=== PATIENT | male | born 1970 | race Caucasian/White ===

== ENCOUNTER 2016-08-27 22:53 | Emergency (ER) | payer SELFPAY ==
[~2016-08-27] VITALS: Ht 162.6 cm; Wt 80.5 kg
[2016-08-27 23:01] VITALS: Ht 162.6 cm; Wt 80.5 kg
[2016-08-28] MEDS ORDERED: KETOROLAC 30 MG INJ IV STA (00:32)
[2016-08-28 01:15] LABS: ADD SCAN DIFF NO
[2016-08-28 01:33] LABS: HEMOGLOBIN 14.6 g/dl (14.0-18.0); LYMPHOCYTES # 3.2 10^3/ul (0.8-2.9); RED CELL DISTRIBUTION WIDTH 12.5 % (11.5-14.5)
[2016-08-28 01:34] LABS: BASOPHILS % 0.5 % (0.0-2.0); EOSINOPHILS # 0.2 10^3/ul (0.0-0.5); EOSINOPHILS % 2.5 % (0.0-7.0); HEMATOCRIT 41.9 % (42.0-52.0); LYMPHOCYTES % 39.6 % (15.0-51.0); MEAN CORPUSCULAR HEMOGLOBIN 32.4 pg (29.0-33.0); MEAN CORPUSCULAR HGB CONC 34.8 g/dl (32.0-37.0); MEAN CORPUSCULAR VOLUME 93.1 fl (82.0-101.0); MEAN PLATELET VOLUME 11.2 fl (7.4-10.4); MONOCYTES % 12.2 % (0.0-11.0); NEUTROPHIL # 3.6 10^3/ul (1.6-7.5); NEUTROPHILS % 44.8 % (39.0-77.0); PLATELET COUNT 196 10^3/UL (140-415)
[2016-08-28 01:45] LABS: ALBUMIN 4.5 g/dl (3.3-4.9); ALBUMIN/GLOBULIN RATIO 1.73; BILIRUBIN,INDIRECT 0.1 mg/dl (0-1.1); BILIRUBIN,TOTAL 0.1 mg/dl (0.2-1.3); CALCIUM 9.5 mg/dl (8.4-10.2); CREATININE 0.96 mg/dl (0.61-1.24); POTASSIUM 3.7 mmol/L (3.5-5.1); TOTAL PROTEIN 7.1 g/dl (6.1-8.1)
--- NOTE | 2016-08-28 02:21 | RADRPT ---
PROCEDURE: CT of the abdomen and pelvis without contrast CLINICAL INDICATION: Abdominal Pain. TECHNIQUE: Spiral CT images through the abdomen and pelvis without the use of contrast. The admin istered radiation dose is CTDI 12.5 save and DLP 807.73. One or more of the following dose reductio n techniques were used: automated exposure control, adjustment of the mA and/or kV according to hunter ent size, or use of iterative reconstruction technique. COMPARISON: None FINDINGS: Lack of oral and intravenous contrast somewhat limits evaluation. Slight dependent atelectasis of the lung bases is seen. No pleural effusion is seen. 2 mm right middle lobe lung nodule is seen. The liver, spleen, adrenals, and pancreas are unremarkable in appearance. There are multiple tiny n onobstructing bilateral renal calyceal stones. No stones are seen in the ureters or bladder. Minimal aortic calcification is seen. The prostate is minimally increased in size. The bladder is unremar kable in appearance.. There is no evidence for bowel obstruction, free air, or abscess. The append ix is normal in appearance. . There is no evidence for diverticulitis. No adenopathy or ascites is seen. There is mild degenerative change of the spine. IMPRESSION: Tiny nonobstructing bilateral renal stones. Otherwise unremarkable study.. RPTAT: [facility] Physician Edilberto Date Time Electronically viewed and signed by Physician Edilberto on 08/28/2016 02:21 LE/
[2016-08-28 02:43] LABS: ADD UMIC NO; UR BILIRUBIN (Dip) NEGATIVE (NEGATIVE); UR BLOOD (Dip) NEGATIVE (NEGATIVE); UR CLARITY CLEAR (CLEAR); UR COLOR LT. YELLOW (YELLOW); UR GLUCOSE (Dip) NEGATIVE (NEGATIVE); UR KETONES (Dip) NEGATIVE (NEGATIVE); UR LEUKOCYTE ESTERASE (Dip) NEGATIVE (NEGATIVE); UR NITRITE (Dip) NEGATIVE (NEGATIVE); UR TOTAL PROTEIN (Dip) NEGATIVE (NEGATIVE); UR UROBILINOGEN (Dip) 0.2 E.U./dL (0.1-1.0)
[2016-08-28] MEDS ORDERED: IBUP-1542 PO (02:47)
[2016-08-28] MEDS ORDERED: TAMS-14 PO (02:48)
[2016-08-28] MEDS ORDERED: HYDR-906 PO (02:48)
[2016-08-28 03:18] VITALS: BP 120/73; PULSE 73; RESP 20; TEMP 97.9
--- NOTE | 2016-08-28 03:18 | ERD ---
ER Documentation Chief Complaint Date/Time DATE: 08/28/16 TIME: 03:11 Chief Complaint RT FLANK PAIN X 2 DAYS. HX KIDNEY STONES, STATES IT FEELS THE SAME HPI This is a 45-year-old male with past medical history of nephrolithiasis who presents to the emergency department with right-sided flank pain 2 days. Patient states that his pain is episodic in nature. Patient describes the pain to be sharp and stabbing. Patient denies any fevers, chills, nausea, vomiting, chest pain, shortness of breath abdominal pain or loss of consciousness. Patient denies any dysuria, frequency, urgency or hematuria. Patient states that in the past he has had to have surgical procedures done to remove his stones. ROS All systems reviewed and are negative except as per history of present illness. Medications Home Meds Active Scripts Tamsulosin Hcl* (Flomax*) 0.4 Mg Cap.er.24h, 0.4 MG PO BID, #30 CAP Prov:ARIANE JENNINGS PA-C 08/28/16 Hydrocodone/Acetaminophen (Sidney 5-325 Tablet) 1 Each Tablet, 1 TAB PO Q6H Y for PAIN, #7 TAB Prov:ARIANE JENNINGS PA-C 08/28/16 Ibuprofen* (Motrin*) 600 Mg Tab, 600 MG PO Q6, #30 TAB Prov:ARIANE JENNINGS PA-C 08/28/16 Allergies Allergies: Coded Allergies: No Known Allergy (Unverified , 08/28/16) PMhx/Soc History of Surgery: Yes (kidney stone removal) Anesthesia Reaction: No Hx Neurological Disorder: No Hx Respiratory Disorders: No Hx Cardiac Disorders: No Hx Psychiatric Problems: No Hx Miscellaneous Medical Probl: Yes (kidney stones) Hx Alcohol Use: No Hx Substance Use: No Hx Tobacco Use: No Smoking Status: Never smoker FmHx Family History: No diabetes Physical Exam Vitals Vital Signs Date Time Temp Pulse Resp B/P Pulse Ox O2 Delivery O2 Flow Rate FiO2 08/27/16 23:01 96.4 74 20 142/83 98 Physical Exam GENERAL: Well-developed, well-nourished male. Appears in no acute distress. HEAD: Normocephalic, atraumatic. EYES: Pupils are equally reactive bilaterally. EOMs grossly intact. No conjunctival erythema. ENT: Moist mucous membranes. No uvula deviation. No kissing tonsils. NECK: Supple. No meningismus. Normal range of motion of the neck. LUNG: Clear to auscultation bilaterally. No rhonchi, wheezing, rales or coarse breath sounds. HEART: Regular rate and rhythm. No murmurs, rubs or gallops. ABDOMEN: No scars, ecchymosis or rashes noted. Soft, nontender, and nondistended. Positive bowel sounds in all four quadrants. No rebound tenderness , no guarding. (-) McBurney's point tenderness. R CVA tenderness. BACK: No midline tenderness. EXTREMITIES: Equal pulses bilaterally. No peripheral clubbing, cyanosis or edema. No unilateral leg swelling. NEUROLOGIC: Alert and oriented. Moving all four extremities without any difficulty. Normal speech. Steady gait. SKIN: Normal color. Warm and dry. No rashes or lesions. Result Diagram: 08/28/16 0045 08/28/16 0045 Results 24 hrs Laboratory Tests Test 08/28/16 00:45 08/28/16 02:00 White Blood Count 8.010^3/ul Red Blood Count 4.5010^6/ul Hemoglobin 14.6g/dl Hematocrit 41.9% Mean Corpuscular Volume 93.1fl Mean Corpuscular Hemoglobin 32.4pg Mean Corpuscular Hemoglobin Concent 34.8g/dl Red Cell Distribution Width 12.5% Platelet Count 34947^3/UL Mean Platelet Volume 11.2fl Neutrophils % 44.8% Lymphocytes % 39.6% Monocytes % 12.2% Eosinophils % 2.5% Basophils % 0.5% Nucleated Red Blood Cells % 0.0/100WBC Neutrophils # 3.610^3/ul Lymphocytes # 3.210^3/ul Monocytes # 1.010^3/ul Eosinophils # 0.210^3/ul Basophils # 0.010^3/ul Nucleated Red Blood Cells # 0.010^3/ul Sodium Level 141mmol/L Potassium Level 3.7mmol/L Chloride Level 107mmol/L Carbon Dioxide Level 25mmol/L Anion Gap 13 Blood Urea Nitrogen 12mg/dl Creatinine 0.96mg/dl Glucose Level 101mg/dl Calcium Level 9.5mg/dl Total Bilirubin 0.1mg/dl Direct Bilirubin 0.00mg/dl Indirect Bilirubin 0.1mg/dl Aspartate Amino Transf (AST/SGOT) 48IU/L Alanine Aminotransferase (ALT/SGPT) 92IU/L Alkaline Phosphatase 94IU/L Total Protein 7.1g/dl Albumin 4.5g/dl Globulin 2.60g/dl Albumin/Globulin Ratio 1.73 Lipase 201U/L Urine Color LT. YELLOW Urine Clarity CLEAR Urine pH 6.5 Urine Specific [place] <=1.005 Urine Ketones NEGATIVE Urine Nitrite NEGATIVE Urine Bilirubin NEGATIVE Urine Urobilinogen 0.2 E.U./dL Urine Leukocyte Esterase NEGATIVE Urine Hemoglobin NEGATIVE Urine Glucose NEGATIVE% Urine Total Protein NEGATIVE Current Medications Medications (Trade) Dose Ordered Sig/Araceli Route PRN Reason Start Time Stop Time Status Last Admin Dose Admin Ketorolac Tromethamine (Toradol) 30 mg ONCE STAT IV 08/28/16 00:32 08/28/16 00:33 DC 08/28/16 00:45 Procedures/MDM ED COURSE: The patient was stable throughout ED course. I kept the patient and/or family informed of laboratory and diagnostic imaging results throughout the ED course. DIAGNOSTIC IMAGING: Read by radiologist. DIAGNOSTIC IMAGING REPORT Patient: KATI PRINCE : 1970 Age: 45 Sex: M MR #: [id number] DOS: 08/28/16 0032 Ordering MD: ARIANE JENNINGS PA-C Location: [facility] Room/Bed: PROCEDURE: CT of the abdomen and pelvis without contrast CLINICAL INDICATION: Abdominal Pain. TECHNIQUE: Spiral CT images through the abdomen and pelvis without the use of contrast. The administered radiation dose is CTDI 12.5 save and DLP 807.73. One or more of the following dose reduction techniques were used: automated exposure control, adjustment of the mA and/or kV according to patient size, or use of iterative reconstruction technique. COMPARISON: None FINDINGS: Lack of oral and intravenous contrast somewhat limits evaluation. Slight dependent atelectasis of the lung bases is seen. No pleural effusion is seen. 2 mm right middle lobe lung nodule is seen. The liver, spleen, adrenals, and pancreas are unremarkable in appearance. There are multiple tiny nonobstructing bilateral renal calyceal stones. No stones are seen in the ureters or bladder. Minimal aortic calcification is seen. The prostate is minimally increased in size. The bladder is unremarkable in appearance.. There is no evidence for bowel obstruction, free air, or abscess. The appendix is normal in appearance. . There is no evidence for diverticulitis. No adenopathy or ascites is seen. There is mild degenerative change of the spine. IMPRESSION: Tiny nonobstructing bilateral renal stones. Otherwise unremarkable study.. RPTAT: [facility] Jaky Sandoval, Physician Date Time Electronically viewed and signed by Jaky Sandoval, Physician on 08/28/2016 02 :21 LE/ CC: ARIANE JENNINGS PA-C PROCEDURES: None. MEDICATIONS GIVEN: IV fluids, Toradol Patient tolerated medication well with no adverse reactions. Patient reported improvement in pain. MEDICAL DECISION MAKING: This is a 45-year-old male with a history of nephrolithiasis a presents with right flank pain 2 days. Vital signs were reviewed. Patient was afebrile. UA showed no acute infection or hematuria.. Urine was negative. Abdominal and Pelvis CT showed Tiny nonobstructing bilateral renal stones. Otherwise unremarkable study.. . Given these findings, the patient's presentation is most consistent with nephrolithiasis. I have a much lower clinical concern for obstructed stone, septic stone, UTI, pyelonephritis, appendicitis, diverticulitis, constipation, small bowel obstruction. PRESCRIPTIONS: Tamsulosin. [place] Ibuprofen DISCHARGE: At this time, patient is stable for discharge and outpatient management. Patient provided with a copy of all imaging and blood work obtained today. I have instructed the patient to follow-up with his/her primary care physician in 1-2 days. Patient provided with referral information for urologist. Referral information provided. I have instructed the patient to promptly return to the ER at any time for any new or worsening symptoms including increased increased pain, fever, nausea, vomiting, urinary changes or weakness. The patient and/or family expressed understanding of and agreement with this plan. All questions were answered. Home care instructions were provided. Departure Diagnosis: Primary Impression: Nephrolithiasis Condition: Stable Patient Instructions: Preventing Kidney Stones Referrals: JT QUINONES MD,JOSS JOVEL MD, DONALD MD= Additional Instructions: Call your primary care doctor TOMORROW for an appointment during the next 1-2 days.See the doctor sooner or return here if your condition worsens before your appointment time. Patient will need to follow-up with the urologist for further management of his symptoms. ARIANE JENNINGS PA-C Aug 28, 2016 03:18
== END 2016-08-28 03:19 | disposition home or self-care (01) ==
LOC: FTE 22:53
DX: N20.0 Calculus of kidney (principal)
CPT/HCPCS: 36415; 74176; 80053; 81003; 83690; 85025; 96374; 99285; J1885